=== PATIENT | male | born 1940 | race Caucasian/White ===

== ENCOUNTER 2018-07-23 21:12 | Inpatient (IN) | payer MEDICARE, MEDICAID ==
--- NOTE | 2018-07-23 21:28 | ED Physician Chart ---
ED Chief Complaint/HPI - Patient Information Date Seen:: 07/23/18 Time Seen:: 21:15 Chief Complaint:: combativeness History of Present Illness:: Patient has reportedly been exhibiting combative behavior and striking out at roommates and staff at his extended care facility. Historian:: Patient, EMS Review:: Transfer documents Reviewed ED Review of Systems - Review of Systems General/Constitutional: No chills Skin: No skin lesions Head: No headache Eyes: No loss of vision ENT: No earache Neck: No neck pain, No swelling Cardio Vascular: No chest pain, No palpitations Pulmonary: No SOB GI: No nausea, No vomiting, No diarrhea G/U: No dysuria Musculoskeletal: No bone or joint pain Psychiatric: Prior psych history Hematopoietic: No bruising Allergic/Immuno: No urticaria Neurological: No syncope ED Past Medical History - Past Medical History Past Medical History: HTN, CAD, Seizures, Dementia Family History: None Social History: Non Smoker, Care Facility, Other (patient alcohol consumption) Surgical History: None Medication: Reviewed Family Medical History - Family Member Mother History Unknown: Yes ED Physical Exam - Physical Examination General/Constitutional: Awake, Well-developed, well-nourished, Alert, No distress, GCS 15, Non-toxic appearing, Ambulatory Other Gen/Cons comments:: Alert and oriented to the correct date Head: Atraumatic Eyes: Lids, conjuctiva normal, PERRL, EOMI Skin: Nl inspection, No rash, No skin lesions, No ecchymosis, Well hydrated, No lymphadenopathy ENMT: External ears, nose nl, Nasal exam nl, Lips, teeth, gums nl Neck: Nontender, Full ROM w/o pain, No JVD, No nuchal rigidity, No bruit, No mass, No stridor Respiratory: Nl effort/Exclusion, Clear to Auscultation, No Wheeze/Rhonchi/Rales Cardio Vascular: RRR, No murmur, gallop, rubs, NL S1 S2 GI: No tenderness/rebounding/guarding, No organomegaly, No hernia, Normal BS's, Nondistended, No mass/bruits, No McBurney tenderness : No CVA tenderness Extremities: No tenderness or effusion, Full ROM, normal strength in all extremities, No edema, Normal digits & nails Neuro/Psych: Alert/oriented, DTR's symmetric, Normal sensory exam, Normal motor strength, Judgement/insight normal, Mood normal, Normal gait, No focal deficits Misc: Normal back, No paraspinal tenderness ED Labs/Radiology/EKG Results - Lab Results Results: Abnormal Lab Results 07/23/18 07/23/18 07/23/18 21:37 21:37 21:50 WBC 7.0 RBC 4.85 Hgb 13.4 Hct 41.4 MCV 85.3 MCH 27.6 MCHC Differential 32.4 RDW 12.4 Plt Count 271 MPV 8.3 Neutrophils % 49.9 Lymphocytes % 42.1 Monocytes % 5.1 Eosinophils % 2.0 Basophils % 0.9 Sodium 137 Potassium 3.7 Chloride 101 Carbon Dioxide 27.6 Anion Gap 12.1 BUN 15 Creatinine 0.8 Est GFR ( Amer) TNP Est GFR (Non-Af Amer) TNP BUN/Creatinine Ratio 18.8 Glucose 93 Calcium 9.6 Total Bilirubin 0.4 AST 19 ALT 16 Alkaline Phosphatase 66 Total Protein 6.6 Albumin 4.0 L Globulin 2.6 Albumin/Globulin Ratio 1.5 Triglycerides 71 Cholesterol 171 LDL Cholesterol Direct 122 HDL Cholesterol 48 Urine Source CLEAN C Urine Color OTHER Urine Clarity CLEAR Urine pH 6.5 Ur Specific [place] <= 1.005 Urine Protein NEGATIVE Urine Glucose (UA) NEGATIVE Urine Ketones NEGATIVE Urine Blood NEGATIVE Urine Nitrate NEGATIVE Urine Bilirubin NEGATIVE Urine Urobilinogen 0.2 Ur Leukocyte Esterase NEGATIVE - EKG Interpretations Rate & Rhythm: normal sinus rhythm with a rate of 60 [place]: normal Comments:: First-degree AV block ED Septic Shock - . Is Septic Shock (SBP<90, OR Lactate>4 mmol\L) present?: No ED Reassessment (Disposition) - Reassessment Reassessment Condition:: Unchanged - Diagnosis Diagnosis:: Aggressive behavior - Patient Disposition Admitted to:: [facility] Admitting Medical Physician:: Trudy Krishnamurthy Admitting Psych Physician:: Irvin Khan Condition at Disposition:: Stable, Unchanged
[2018-07-23 21:32] VITALS: BP 140/80
[2018-07-23 21:43] LABS: % BASOPHILS 0.9 % (0.0-2.0); % LYMPHOCYTES 42.1 % (20.0-50.0); % MONOCYTES 5.1 % (2.0-10.0); % NEUTROPHILS 49.9 % (40.0-80.0); HEMATOCRIT 41.4 % (41.0-60); HEMOGLOBIN 13.4 gm/dL (12-16); MEAN CELL VOLUME 85.3 fl (80-99); MEAN CORPUSCULAR HEMOGLOBIN 27.6 pg (27.0-31.0); MEAN CORPUSCULAR HGB CONC 32.4 pg (28.0-36.0); MEAN PLATELET VOLUME 8.3 fl; NEUTROPHILE ABSOLUTE 3.5 Th/cmm (1.8-8.0); PLATELET COUNT 271 Th/cmm (150-400); RED BLOOD COUNT 4.85 Mil/cmm (3.80-5.80); RED CELL DISTRIBUTION WIDTH 12.4 % (11.5-20.0)
[2018-07-23 21:44] LABS: BASOPHILE ABSOLUTE 0.1 Th/cumm (0-0.2); EOSINOPHILE ABSOLUTE 0.1 Th/cmm (0.1-0.4); LYMPHOCYTE ABSOLUTE 2.9 Th/cmm (1.5-3.0); MONOCYTE ABSOLUTE 0.4 Th/cmm (0.3-1.0)
[2018-07-23 22:00] LABS: ALB/GLOB RATIO 1.5 (1.0-1.8); ALKALINE PHOSPHATASE 66 U/L (34-104); ANION GAP 12.1 (7.0-16.0); BILIRUBIN,TOTAL 0.4 mg/dL (0.3-1.0); BUN - UREA NITROGEN 15 mg/dL (7-25); CALCIUM SERUM 9.6 mg/dL (8.6-10.3); CARBON DIOXIDE 27.6 mEq/L (21.0-31.0); CHLORIDE 101 mEq/L (98-107); CHOLESTEROL 171 mg/dL (<200); CREATININE - SERUM 0.8 mg/dL (0.7-1.3); GLUCOSE 93 mg/dL (70-105); HDL -HIGH DENSITY LIPOPROTEIN 48 mg/dL (23-92); POTASSIUM SERUM 3.7 mEq/L (3.5-5.1); SGOT 19 U/L (13-39); SGPT/ALT 16 U/L (7-52); SODIUM SERUM 137 mEq/L (136-145); TOTAL PROTEIN,SERUM 6.6 gm/dL (6.0-8.3); TRIGLYCERIDES 71 mg/dL (<150)
[2018-07-23 22:05] LABS: URINE SOURCE CLEAN C
[2018-07-23 22:09] LABS: URINE BILIRUBIN NEGATIVE (NEGATIVE); URINE BLOOD NEGATIVE (NEGATIVE); URINE GLUCOSE (UA) NEGATIVE (NEGATIVE); URINE KETONE NEGATIVE (NEGATIVE); URINE LEUKOCYTE ESTERASE NEGATIVE (NEGATIVE); URINE NITRATE NEGATIVE (NEGATIVE); URINE PH 6.5 (4.6 - 8.0); URINE PROTEIN NEGATIVE (NEGATIVE); URINE UROBILINOGEN 0.2 E.U./dL (0.2 - 1.0)
[2018-07-23 22:12] LABS: URINE CLARITY CLEAR (CLEAR); URINE COLOR OTHER; URINE MICROSCOPIC INDICATED? NO
[2018-07-24] MEDS ORDERED: Maalox 30 mL Cup PO PRN (00:25)
[2018-07-24] MEDS: Pantoprazole 40 mg EC Tab PO SCH (06:38)
[2018-07-24] MEDS: Multivitamin Tab PO SCH (09:30)
--- NOTE | 2018-07-24 13:21 | History & Physical ---
ADMIT DATE: 07/23/2018 IDENTIFYING INFORMATION: The patient is a 77-year-old male. CHIEF COMPLAINT: "I have pain in my legs." HISTORY OF PRESENT ILLNESS: The patient referred from [facility] because of combative behavior. The patient himself was a poor historian. He reports that he has dementia. He said that he was exercising and he has pain in his leg. He reports sleeps well, eats well. He was unable to tell me the present, could not tell me who was before him. He said this is first hospitalization; however, before that he told me he saw me before when he was hospitalized before. He is an unreliable historian. He was apparently able to tell the date to the doctor that saw him in Emergency Room, he said it is 07/28, unable to tell me more details about the date. PAST PSYCHIATRIC HISTORY: Dementia, agitation. MEDICATIONS: The patient has been on Aricept 10 mg daily as well as Neurontin 600 mg 3 times a day, Lamictal 100 mg twice a day and Remeron 7.5 mg at bedtime, and multivitamin daily, and Protonix. He is apparently on medication for neuropathy. ALLERGIES: The patient has no known drug allergies. PAST MEDICAL HISTORY: Unable to tell me if he has any medical condition, complaint of pain in his legs. He is demented, confused, and gastroesophageal reflux disease. He is on Protonix. FAMILY AND SOCIAL HISTORY: The patient reports single, never , no children twelfth grade education. He ____ used to play cards. He denies substance abuse; however, he is not a reliable historian. He lives at [facility]. Denies family psychiatry disorder. He is an unreliable historian. MENTAL STATUS EXAMINATION: The patient is appropriately dressed, not well groomed. He was alert. He was unable to tell me exact date. He says, this is 07/28, unable to tell me more details about the date, he said he believes he lived here. When asked where he lived before that he could not tell me. He did not know where he was living. He reported that he sleeps well. He eats well. He was combative, aggressive at the nursing facility he was at. He denies any visual hallucinations. He denies any intent to harm anybody. His long-term memory is good, age and date of . Recent memory is poor, cannot remember events at his admission and inside about his illness is poor, does not realize that he has a problem, what he has problem. Judgment is poor with his behavior. IMPRESSION: Bipolar disorder, dementia. MEDICAL DIAGNOSES: Deferred to the medical doctor. ASSETS: He is accepting treatment. Negative poor coping skills. INITIAL TREATMENT PLAN: The patient will be continued on medication and adjust medication as needed. We will do group therapy, milieu therapy. ESTIMATED LENGTH OF STAY: 3-7 days. DISCHARGE CRITERIA: Decreasing agitation, combativeness, after discharge outpatient treatment. JOB# [id number]
--- NOTE | 2018-07-24 14:28 | History & Physical ---
ADMIT DATE: 07/23/2018 HISTORY OF PRESENT ILLNESS: The patient is a 77-year-old male with long history of degenerative joint disease, mild dementia, peripheral neuropathy, admitted to [facility] under Dr. Khan's service for evaluation and treatment. The patient still has pain of the lower extremities. No fever. No chills. PAST MEDICAL HISTORY: Significant for peripheral neuropathy, degenerative joint disease, and mild dementia. PAST SURGICAL HISTORY: No recent surgery. ALLERGIES: None. MEDICATIONS: Follow admission reconciliation. SOCIAL HISTORY: No smoking, no alcohol, and no drugs. FAMILY HISTORY: Noncontributory. REVIEW OF SYSTEMS: RENAL SYSTEM: No history of chronic renal disorder. CARDIOVASCULAR SYSTEM: No coronary artery disease. ENDOCRINE SYSTEM: No diabetes or thyroid problem. GASTROINTESTINAL SYSTEM: No upper or lower gastrointestinal bleed. NEUROLOGICAL SYSTEM: ____. MUSCULOSKELETAL SYSTEM: Degenerative joint disease. PHYSICAL EXAMINATION: GENERAL: He is awake, alert. VITAL SIGNS: Temperature 97, heart rate 61, blood pressure is 131/72. HEENT: Normocephalic. Pupils are reactive to light and accommodation. Sclerae clear. NECK: Supple. Negative for lymphadenopathy, JVD, or bruit. CHEST: Entry of air bilateral normal. No rhonchi or wheezing. HEART: S1 and S2 normal. No gallop rhythm. ABDOMEN: Soft, bowel sounds positive. EXTREMITIES: No edema. NEUROLOGIC: He is awake, alert, mildly confused. His gait is unstable. LABORATORY DATA: White blood 7, hemoglobin 13.4, hematocrit 41.4, and platelet is 271. Sodium 137, potassium 3.7, BUN 15, and creatinine 0.8. ASSESSMENT: 1. Degenerative joint disease. 2. Peripheral neuropathy of lower extremities. 3. Dementia. 4. Psychosis. PLAN: The patient was admitted to the hospital under Dr. Khan's service. Medical problem addressed during this hospitalization is psychosis. Medical problems addressed at discharge are neuropathy, degenerative joint disease, and dementia. The patient is medically stable for activity. Thank you Dr. Khan for asking me to see your patient. The patient is a full code. JOB# [id number]
[2018-07-25] MEDS: Pantoprazole 40 mg EC Tab PO SCH (06:51)
[2018-07-25] MEDS: Multivitamin Tab PO SCH (09:04)
--- NOTE | 2018-07-25 10:19 | Internal Medicine Prog Note ---
Internal Medicine Subjective - Subjective Service Date: 07/25/18 Patient seen and examined:: with staff Patient is:: awake, verbal, in wheelchair, confused Per staff patient has:: no adverse event Internal Medicine Objective - Results Result Diagrams: 07/23/18 21:37 07/23/18 21:37 Recent Labs: Laboratory Last Values WBC 7.0 Th/cmm (4.8-10.8) 07/23/18 21:37 RBC 4.85 Mil/cmm (3.80-5.80) 07/23/18 21:37 Hgb 13.4 gm/dL (12-16) 07/23/18 21:37 Hct 41.4 % (41.0-60) 07/23/18 21:37 MCV 85.3 fl (80-99) 07/23/18 21:37 MCH 27.6 pg (27.0-31.0) 07/23/18 21:37 MCHC Differential 32.4 pg (28.0-36.0) 07/23/18 21:37 RDW 12.4 % (11.5-20.0) 07/23/18 21:37 Plt Count 271 Th/cmm (150-400) 07/23/18 21:37 MPV 8.3 fl 07/23/18 21:37 Neutrophils % 49.9 % (40.0-80.0) 07/23/18 21:37 Lymphocytes % 42.1 % (20.0-50.0) 07/23/18 21:37 Monocytes % 5.1 % (2.0-10.0) 07/23/18 21:37 Eosinophils % 2.0 % (0.0-5.0) 07/23/18 21:37 Basophils % 0.9 % (0.0-2.0) 07/23/18 21:37 Sodium 137 mEq/L (136-145) 07/23/18 21:37 Potassium 3.7 mEq/L (3.5-5.1) 07/23/18 21:37 Chloride 101 mEq/L (98-107) 07/23/18 21:37 Carbon Dioxide 27.6 mEq/L (21.0-31.0) 07/23/18 21:37 Anion Gap 12.1 (7.0-16.0) 07/23/18 21:37 BUN 15 mg/dL (7-25) 07/23/18 21:37 Creatinine 0.8 mg/dL (0.7-1.3) 07/23/18 21:37 Est GFR ( Amer) TNP 07/23/18 21:37 Est GFR (Non-Af Amer) TNP 07/23/18 21:37 BUN/Creatinine Ratio 18.8 07/23/18 21:37 Glucose 93 mg/dL (70-105) 07/23/18 21:37 Calcium 9.6 mg/dL (8.6-10.3) 07/23/18 21:37 Total Bilirubin 0.4 mg/dL (0.3-1.0) 07/23/18 21:37 AST 19 U/L (13-39) 07/23/18 21:37 ALT 16 U/L (7-52) 07/23/18 21:37 Alkaline Phosphatase 66 U/L (34-104) 07/23/18 21:37 Total Protein 6.6 gm/dL (6.0-8.3) 07/23/18 21:37 Albumin 4.0 gm/dL (4.2-5.5) L 07/23/18 21:37 Globulin 2.6 gm/dL 07/23/18 21:37 Albumin/Globulin Ratio 1.5 (1.0-1.8) 07/23/18 21:37 Triglycerides 71 mg/dL (<150) 07/23/18 21:37 Cholesterol 171 mg/dL (<200) 07/23/18 21:37 LDL Cholesterol Direct 122 mg/dL (75-193) 07/23/18 21:37 HDL Cholesterol 48 mg/dL (23-92) 07/23/18 21:37 TSH 3.46 uIU/ml (0.34-5.60) 07/23/18 21:37 Urine Source CLEAN C 07/23/18 21:50 Urine Color OTHER 07/23/18 21:50 Urine Clarity CLEAR (CLEAR) 07/23/18 21:50 Urine pH 6.5 (4.6 - 8.0) 07/23/18 21:50 Ur Specific [place] <= 1.005 (1.005-1.030) 07/23/18 21:50 Urine Protein NEGATIVE mg/dL (NEGATIVE) 07/23/18 21:50 Urine Glucose (UA) NEGATIVE mg/dL (NEGATIVE) 07/23/18 21:50 Urine Ketones NEGATIVE mg/dL (NEGATIVE) 07/23/18 21:50 Urine Blood NEGATIVE (NEGATIVE) 07/23/18 21:50 Urine Nitrate NEGATIVE (NEGATIVE) 07/23/18 21:50 Urine Bilirubin NEGATIVE (NEGATIVE) 07/23/18 21:50 Urine Urobilinogen 0.2 E.U./dL (0.2 - 1.0) 07/23/18 21:50 Ur Leukocyte Esterase NEGATIVE (NEGATIVE) 07/23/18 21:50 - Physical Exam Vitals and I&O: Vital Signs Temp 96.9 F 07/25/18 06:34 Pulse 50 07/25/18 06:34 Resp 19 07/25/18 06:34 BP 105/53 07/25/18 06:34 Pulse Ox 98 07/25/18 06:34 Intake & Output 07/24/18 07/25/18 07/25/18 18:59 06:59 18:59 Intake Total 700 240 Balance 700 240 Weight (lbs) 77.111 kg Intake: Oral 700 240 Other: # Voids 3 3 # Bowel Movements 1 1 Weight Source Bedscale Active Medications: Current Medications Al Hydrox/Mg Hydrox/Simethicone (Maalox) 30 ml PO Q6HR PRN PRN Reason: gi distress Stop: 09/22/18 00:24 Aspirin (Ecotrin) 81 mg PO DAILY [facility] Stop: 09/22/18 08:59 Last Admin: 07/25/18 09:04 Dose: 81 mg Docusate Sodium (Colace) 250 mg PO DAILY [facility] Stop: 09/22/18 08:59 Last Admin: 07/25/18 09:04 Dose: 250 mg Donepezil HCl (Aricept) 10 mg PO HS [facility] Stop: 09/22/18 20:59 Last Admin: 07/24/18 20:47 Dose: 10 mg Gabapentin (Neurontin) 600 mg PO TID [facility] Stop: 09/22/18 08:59 Last Admin: 07/25/18 09:04 Dose: 600 mg Lamotrigine (Lamictal) 100 mg PO BID [facility]; Protocol Stop: 09/22/18 08:59 Last Admin: 07/25/18 09:04 Dose: 100 mg Lorazepam (Ativan) 0.5 mg PO Q4HR PRN; Protocol PRN Reason: Anxiety Stop: 08/23/18 00:18 Mirtazapine (Remeron) 7.5 mg PO HS [facility]; Protocol Stop: 09/22/18 20:59 Last Admin: 07/24/18 20:47 Dose: 7.5 mg Multivitamins/Vitamin C (Theragran) 1 tab PO DAILY [facility] Stop: 09/22/18 08:59 Last Admin: 07/25/18 09:04 Dose: 1 tab Pantoprazole Sodium (Protonix) 40 mg PO QDAC [facility] Stop: 09/22/18 07:29 Last Admin: 07/25/18 06:51 Dose: 40 mg Zolpidem Tartrate (Ambien) 5 mg PO HS PRN PRN Reason: Insomnia Stop: 09/22/18 00:18 General: alert, demented HEENT: PERRLA, EOMI, anicteric sclerae, throat clear Neck: Supple, No JVD, No thyromegaly, +2 carotid pulse wo bruit, No LAD Lungs: CTAB Cardiovascular: RRR, Normal S1, Normal S2, without murmur Abdomen: soft, non-tender, non-distended Extremities: clear Neurological: no change Internal Medicine Assmt/Plan - Assessment Assessment: 1.DJD. 2.PERIPHERAL NEUROPATHY. 3.DEMENTIA. 4.PSYCHOSIS. - Plan Plan: CONTINUE ON CURRENT MEDICATION AND DIET.
--- NOTE | 2018-07-25 22:52 | Progress Notes ---
DATE: SUBJECTIVE: Chart reviewed and the patient interviewed. Also discussed the patient's condition with the staff and reviewed records and labs. The patient is still extremely agitated and in irritable mood. The patient also during my trial to interview him, was very confused and agitated and he kept walking to the exit door and tried to push the door and to exit door in a confused state. The patient also was not able to follow any of my directions or any of staff directions. The patient also is still irritable and easily agitated. It seems that his agitation slightly better than before. ASSESSMENT: The patient is still confused and psychotic. TREATMENT PLAN: Continue Lamictal and Remeron same dose as well as Aricept. Also, continue to monitor his agitation and his irritability. JOB# [id number]
[2018-07-26] MEDS: Pantoprazole 40 mg EC Tab PO SCH (06:40)
[2018-07-26] MEDS: Multivitamin Tab PO SCH (09:02)
--- NOTE | 2018-07-26 19:42 | Internal Medicine Prog Note ---
Internal Medicine Subjective - Subjective Service Date: 07/26/18 Patient seen and examined:: without staff Patient is:: awake, verbal, in wheelchair, confused Per staff patient has:: no adverse event Internal Medicine Objective - Results Result Diagrams: 07/23/18 21:37 07/23/18 21:37 Recent Labs: Laboratory Last Values WBC 7.0 Th/cmm (4.8-10.8) 07/23/18 21:37 RBC 4.85 Mil/cmm (3.80-5.80) 07/23/18 21:37 Hgb 13.4 gm/dL (12-16) 07/23/18 21:37 Hct 41.4 % (41.0-60) 07/23/18 21:37 MCV 85.3 fl (80-99) 07/23/18 21:37 MCH 27.6 pg (27.0-31.0) 07/23/18 21:37 MCHC Differential 32.4 pg (28.0-36.0) 07/23/18 21:37 RDW 12.4 % (11.5-20.0) 07/23/18 21:37 Plt Count 271 Th/cmm (150-400) 07/23/18 21:37 MPV 8.3 fl 07/23/18 21:37 Neutrophils % 49.9 % (40.0-80.0) 07/23/18 21:37 Lymphocytes % 42.1 % (20.0-50.0) 07/23/18 21:37 Monocytes % 5.1 % (2.0-10.0) 07/23/18 21:37 Eosinophils % 2.0 % (0.0-5.0) 07/23/18 21:37 Basophils % 0.9 % (0.0-2.0) 07/23/18 21:37 Sodium 137 mEq/L (136-145) 07/23/18 21:37 Potassium 3.7 mEq/L (3.5-5.1) 07/23/18 21:37 Chloride 101 mEq/L (98-107) 07/23/18 21:37 Carbon Dioxide 27.6 mEq/L (21.0-31.0) 07/23/18 21:37 Anion Gap 12.1 (7.0-16.0) 07/23/18 21:37 BUN 15 mg/dL (7-25) 07/23/18 21:37 Creatinine 0.8 mg/dL (0.7-1.3) 07/23/18 21:37 Est GFR ( Amer) TNP 07/23/18 21:37 Est GFR (Non-Af Amer) TNP 07/23/18 21:37 BUN/Creatinine Ratio 18.8 07/23/18 21:37 Glucose 93 mg/dL (70-105) 07/23/18 21:37 Calcium 9.6 mg/dL (8.6-10.3) 07/23/18 21:37 Total Bilirubin 0.4 mg/dL (0.3-1.0) 07/23/18 21:37 AST 19 U/L (13-39) 07/23/18 21:37 ALT 16 U/L (7-52) 07/23/18 21:37 Alkaline Phosphatase 66 U/L (34-104) 07/23/18 21:37 Total Protein 6.6 gm/dL (6.0-8.3) 07/23/18 21:37 Albumin 4.0 gm/dL (4.2-5.5) L 07/23/18 21:37 Globulin 2.6 gm/dL 07/23/18 21:37 Albumin/Globulin Ratio 1.5 (1.0-1.8) 07/23/18 21:37 Triglycerides 71 mg/dL (<150) 07/23/18 21:37 Cholesterol 171 mg/dL (<200) 07/23/18 21:37 LDL Cholesterol Direct 122 mg/dL (75-193) 07/23/18 21:37 HDL Cholesterol 48 mg/dL (23-92) 07/23/18 21:37 TSH 3.46 uIU/ml (0.34-5.60) 07/23/18 21:37 Urine Source CLEAN C 07/23/18 21:50 Urine Color OTHER 07/23/18 21:50 Urine Clarity CLEAR (CLEAR) 07/23/18 21:50 Urine pH 6.5 (4.6 - 8.0) 07/23/18 21:50 Ur Specific [place] <= 1.005 (1.005-1.030) 07/23/18 21:50 Urine Protein NEGATIVE mg/dL (NEGATIVE) 07/23/18 21:50 Urine Glucose (UA) NEGATIVE mg/dL (NEGATIVE) 07/23/18 21:50 Urine Ketones NEGATIVE mg/dL (NEGATIVE) 07/23/18 21:50 Urine Blood NEGATIVE (NEGATIVE) 07/23/18 21:50 Urine Nitrate NEGATIVE (NEGATIVE) 07/23/18 21:50 Urine Bilirubin NEGATIVE (NEGATIVE) 07/23/18 21:50 Urine Urobilinogen 0.2 E.U./dL (0.2 - 1.0) 07/23/18 21:50 Ur Leukocyte Esterase NEGATIVE (NEGATIVE) 07/23/18 21:50 RPR NONREACTIVE (NONREACTIVE) 07/23/18 21:37 - Physical Exam Vitals and I&O: Vital Signs Temp 97.4 F 07/26/18 14:00 Pulse 60 07/26/18 14:00 Resp 20 07/26/18 14:00 BP 118/55 07/26/18 14:00 Pulse Ox 96 07/26/18 14:00 Intake & Output 07/26/18 07/26/18 07/27/18 06:59 18:59 06:59 Intake Total 120 1200 Balance 120 1200 Intake: Oral 120 1200 Other: # Voids 3 4 # Bowel Movements 1 Active Medications: Current Medications Al Hydrox/Mg Hydrox/Simethicone (Maalox) 30 ml PO Q6HR PRN PRN Reason: gi distress Stop: 09/22/18 00:24 Aspirin (Ecotrin) 81 mg PO DAILY [facility] Stop: 09/22/18 08:59 Last Admin: 07/26/18 09:02 Dose: 81 mg Docusate Sodium (Colace) 250 mg PO DAILY [facility] Stop: 09/22/18 08:59 Last Admin: 07/26/18 09:02 Dose: 250 mg Donepezil HCl (Aricept) 10 mg PO HS [facility] Stop: 09/22/18 20:59 Last Admin: 07/25/18 20:22 Dose: 10 mg Gabapentin (Neurontin) 600 mg PO TID [facility] Stop: 09/22/18 08:59 Last Admin: 07/26/18 13:02 Dose: 600 mg Lamotrigine (Lamictal) 100 mg PO BID [facility]; Protocol Stop: 09/22/18 08:59 Last Admin: 07/26/18 16:56 Dose: 100 mg Lorazepam (Ativan) 0.5 mg PO Q4HR PRN; Protocol PRN Reason: Anxiety Stop: 08/23/18 00:18 Last Admin: 07/26/18 14:51 Dose: 0.5 mg Mirtazapine (Remeron) 7.5 mg PO HS [facility]; Protocol Stop: 09/22/18 20:59 Last Admin: 07/25/18 20:21 Dose: 7.5 mg Multivitamins/Vitamin C (Theragran) 1 tab PO DAILY [facility] Stop: 09/22/18 08:59 Last Admin: 07/26/18 09:02 Dose: 1 tab Pantoprazole Sodium (Protonix) 40 mg PO QDAC [facility] Stop: 09/22/18 07:29 Last Admin: 07/26/18 06:40 Dose: 40 mg Zolpidem Tartrate (Ambien) 5 mg PO HS PRN PRN Reason: Insomnia Stop: 09/22/18 00:18 Last Admin: 07/25/18 20:22 Dose: 5 mg General: alert, demented HEENT: PERRLA, EOMI, anicteric sclerae, throat clear Neck: Supple, No JVD, No thyromegaly, +2 carotid pulse wo bruit, No LAD Lungs: CTAB Cardiovascular: RRR, Normal S1, Normal S2, without murmur Abdomen: soft, non-tender, non-distended Extremities: clear Neurological: no change Internal Medicine Assmt/Plan - Assessment Assessment: 1.DJD. 2.PERIPHERAL NEUROPATHY. 3.DEMENTIA. 4.PSYCHOSIS. - Plan Plan: CONTINUE ON CURRENT MEDICATION AND DIET. Nutritional Asmnt/Malnutr-PDOC - Dietary Evaluation Malnutrition Findings (Please click <Entered> for more info): Nutritional Asmnt/Malnutrition Start: 07/25/18 14: 51 Text: Status: Complete Freq: Protocol: Document 07/25/18 14:52 JUANITA (Rec: 07/25/18 14:57 [email or web address]) Nutritional Asmnt/Malnutrition Patient General Information Nutritional Screening Moderate Risk Diagnosis psychosis Pertinent Medical Hx/Surgical Hx DJD, dementia, peripheral neuropathy Subjective Information Pt seen eating in dining room, alert. Food preference provided to RD. Per EMR, PO intake 50-75% Current Diet Order/ Nutrition Support MARIA ISABEL Pertinent Medications colace, remeron, theragran, protonix Pertinent Labs 07/23 Alb 4.0 Nutritional Hx/Data Height 1.78 m Height (Calculated Centimeters) 177.8 Current Weight (lbs) 77.111 kg Weight (Calculated Kilograms) 77.1 Weight (Calculated Grams) 49732.7 [place] Body Weight 166 Body Mass Index (BMI) 24.3 Weight Status Approriate GI Symptoms GI Symptoms None Last BM 07/25 Difficult in: None Skin Integrity/Comment: intact Current %PO Fair (50-74%) Estimated Nutritional Goals BEE in Kcals: Using Current wt Calories/Kcals/Kg 25-30 Kcals Calculated 2630-9889 Protein: Using Current wt Protein g/k Protein Calculated 77 Fluid: ml 1925-2310ml (1ml/kcal) Nutritional Problem No current Nutrition Prob Problem N/A Malnutrition Alert Is there a minimum of two criteria No selected? Query Text:Check all the applicable criteria. A minimum of two criteria are recommended for diagnosis of either severe or non-severe malnutrition. Malnutrition Related to Morbid Obesity Malnutrition related to morbid obesity No Intervention/Recommendation Comments 1. Continue with MARIA ISABEL diet as ordered. Food preference updated. 2. Monitor PO intake, wt, labs and skin integrity 3. F/U as low risk in 7 days Expected Outcomes/Goals Expected Outcomes/Goals 1. PO intake to meet at least 75% of nutritional needs. 2. Wt stability, skin to remain intact, labs to approach WNL.
[2018-07-27] MEDS: Pantoprazole 40 mg EC Tab PO SCH (06:45)
[2018-07-27] MEDS: Multivitamin Tab PO SCH (08:32)
--- NOTE | 2018-07-27 17:21 | Internal Medicine Prog Note ---
Internal Medicine Subjective - Subjective Service Date: 07/27/18 Patient seen and examined:: without staff Patient is:: awake, verbal, in wheelchair, confused Per staff patient has:: no adverse event Internal Medicine Objective - Results Result Diagrams: 07/23/18 21:37 07/23/18 21:37 Recent Labs: Laboratory Last Values WBC 7.0 Th/cmm (4.8-10.8) 07/23/18 21:37 RBC 4.85 Mil/cmm (3.80-5.80) 07/23/18 21:37 Hgb 13.4 gm/dL (12-16) 07/23/18 21:37 Hct 41.4 % (41.0-60) 07/23/18 21:37 MCV 85.3 fl (80-99) 07/23/18 21:37 MCH 27.6 pg (27.0-31.0) 07/23/18 21:37 MCHC Differential 32.4 pg (28.0-36.0) 07/23/18 21:37 RDW 12.4 % (11.5-20.0) 07/23/18 21:37 Plt Count 271 Th/cmm (150-400) 07/23/18 21:37 MPV 8.3 fl 07/23/18 21:37 Neutrophils % 49.9 % (40.0-80.0) 07/23/18 21:37 Lymphocytes % 42.1 % (20.0-50.0) 07/23/18 21:37 Monocytes % 5.1 % (2.0-10.0) 07/23/18 21:37 Eosinophils % 2.0 % (0.0-5.0) 07/23/18 21:37 Basophils % 0.9 % (0.0-2.0) 07/23/18 21:37 Sodium 137 mEq/L (136-145) 07/23/18 21:37 Potassium 3.7 mEq/L (3.5-5.1) 07/23/18 21:37 Chloride 101 mEq/L (98-107) 07/23/18 21:37 Carbon Dioxide 27.6 mEq/L (21.0-31.0) 07/23/18 21:37 Anion Gap 12.1 (7.0-16.0) 07/23/18 21:37 BUN 15 mg/dL (7-25) 07/23/18 21:37 Creatinine 0.8 mg/dL (0.7-1.3) 07/23/18 21:37 Est GFR ( Amer) TNP 07/23/18 21:37 Est GFR (Non-Af Amer) TNP 07/23/18 21:37 BUN/Creatinine Ratio 18.8 07/23/18 21:37 Glucose 93 mg/dL (70-105) 07/23/18 21:37 Calcium 9.6 mg/dL (8.6-10.3) 07/23/18 21:37 Total Bilirubin 0.4 mg/dL (0.3-1.0) 07/23/18 21:37 AST 19 U/L (13-39) 07/23/18 21:37 ALT 16 U/L (7-52) 07/23/18 21:37 Alkaline Phosphatase 66 U/L (34-104) 07/23/18 21:37 Total Protein 6.6 gm/dL (6.0-8.3) 07/23/18 21:37 Albumin 4.0 gm/dL (4.2-5.5) L 07/23/18 21:37 Globulin 2.6 gm/dL 07/23/18 21:37 Albumin/Globulin Ratio 1.5 (1.0-1.8) 07/23/18 21:37 Triglycerides 71 mg/dL (<150) 07/23/18 21:37 Cholesterol 171 mg/dL (<200) 07/23/18 21:37 LDL Cholesterol Direct 122 mg/dL (75-193) 07/23/18 21:37 HDL Cholesterol 48 mg/dL (23-92) 07/23/18 21:37 TSH 3.46 uIU/ml (0.34-5.60) 07/23/18 21:37 Urine Source CLEAN C 07/23/18 21:50 Urine Color OTHER 07/23/18 21:50 Urine Clarity CLEAR (CLEAR) 07/23/18 21:50 Urine pH 6.5 (4.6 - 8.0) 07/23/18 21:50 Ur Specific [place] <= 1.005 (1.005-1.030) 07/23/18 21:50 Urine Protein NEGATIVE mg/dL (NEGATIVE) 07/23/18 21:50 Urine Glucose (UA) NEGATIVE mg/dL (NEGATIVE) 07/23/18 21:50 Urine Ketones NEGATIVE mg/dL (NEGATIVE) 07/23/18 21:50 Urine Blood NEGATIVE (NEGATIVE) 07/23/18 21:50 Urine Nitrate NEGATIVE (NEGATIVE) 07/23/18 21:50 Urine Bilirubin NEGATIVE (NEGATIVE) 07/23/18 21:50 Urine Urobilinogen 0.2 E.U./dL (0.2 - 1.0) 07/23/18 21:50 Ur Leukocyte Esterase NEGATIVE (NEGATIVE) 07/23/18 21:50 RPR NONREACTIVE (NONREACTIVE) 07/23/18 21:37 - Physical Exam Vitals and I&O: Vital Signs Temp 98.2 F 07/27/18 14:00 Pulse 76 07/27/18 14:00 Resp 18 07/27/18 14:00 BP 102/60 07/27/18 14:00 Pulse Ox 97 07/27/18 14:00 Intake & Output 07/26/18 07/27/18 07/27/18 18:59 06:59 18:59 Intake Total 1200 120 Balance 1200 120 Intake: Oral 1200 120 Other: # Voids 4 3 # Bowel Movements 1 Active Medications: Current Medications Al Hydrox/Mg Hydrox/Simethicone (Maalox) 30 ml PO Q6HR PRN PRN Reason: gi distress Stop: 09/22/18 00:24 Aspirin (Ecotrin) 81 mg PO DAILY [facility] Stop: 09/22/18 08:59 Last Admin: 07/27/18 08:32 Dose: 81 mg Docusate Sodium (Colace) 250 mg PO DAILY [facility] Stop: 09/22/18 08:59 Last Admin: 07/27/18 08:32 Dose: 250 mg Donepezil HCl (Aricept) 10 mg PO HS [facility] Stop: 09/22/18 20:59 Last Admin: 07/26/18 21:23 Dose: 10 mg Gabapentin (Neurontin) 600 mg PO TID [facility] Stop: 09/22/18 08:59 Last Admin: 07/27/18 14:01 Dose: 600 mg Lamotrigine (Lamictal) 100 mg PO BID [facility]; Protocol Stop: 09/22/18 08:59 Last Admin: 07/27/18 17:09 Dose: 100 mg Lorazepam (Ativan) 0.5 mg PO Q4HR PRN; Protocol PRN Reason: Anxiety Stop: 08/23/18 00:18 Last Admin: 07/26/18 14:51 Dose: 0.5 mg Mirtazapine (Remeron) 7.5 mg PO HS [facility]; Protocol Stop: 09/22/18 20:59 Last Admin: 07/26/18 21:23 Dose: 7.5 mg Multivitamins/Vitamin C (Theragran) 1 tab PO DAILY [facility] Stop: 09/22/18 08:59 Last Admin: 07/27/18 08:32 Dose: 1 tab Pantoprazole Sodium (Protonix) 40 mg PO QDAC [facility] Stop: 09/22/18 07:29 Last Admin: 07/27/18 06:45 Dose: 40 mg Zolpidem Tartrate (Ambien) 5 mg PO HS PRN PRN Reason: Insomnia Stop: 09/22/18 00:18 Last Admin: 07/25/18 20:22 Dose: 5 mg General: alert, demented HEENT: PERRLA, EOMI, anicteric sclerae, throat clear Neck: Supple, No JVD, No thyromegaly, +2 carotid pulse wo bruit, No LAD Lungs: CTAB Cardiovascular: RRR, Normal S1, Normal S2, without murmur Abdomen: soft, non-tender, non-distended Extremities: clear Neurological: no change Internal Medicine Assmt/Plan - Assessment Assessment: 1.DJD. 2.PERIPHERAL NEUROPATHY. 3.DEMENTIA. 4.PSYCHOSIS. - Plan Plan: CONTINUE ON CURRENT MEDICATION AND DIET. Nutritional Asmnt/Malnutr-PDOC - Dietary Evaluation Malnutrition Findings (Please click <Entered> for more info): Nutritional Asmnt/Malnutrition Start: 07/25/18 14: 51 Text: Status: Complete Freq: Protocol: Document 07/25/18 14:52 JUANITA (Rec: 07/25/18 14:57 [email or web address]) Nutritional Asmnt/Malnutrition Patient General Information Nutritional Screening Moderate Risk Diagnosis psychosis Pertinent Medical Hx/Surgical Hx DJD, dementia, peripheral neuropathy Subjective Information Pt seen eating in dining room, alert. Food preference provided to RD. Per EMR, PO intake 50-75% Current Diet Order/ Nutrition Support MARIA ISABEL Pertinent Medications colace, remeron, theragran, protonix Pertinent Labs 07/23 Alb 4.0 Nutritional Hx/Data Height 1.78 m Height (Calculated Centimeters) 177.8 Current Weight (lbs) 77.111 kg Weight (Calculated Kilograms) 77.1 Weight (Calculated Grams) 03175.7 [place] Body Weight 166 Body Mass Index (BMI) 24.3 Weight Status Approriate GI Symptoms GI Symptoms None Last BM 07/25 Difficult in: None Skin Integrity/Comment: intact Current %PO Fair (50-74%) Estimated Nutritional Goals BEE in Kcals: Using Current wt Calories/Kcals/Kg 25-30 Kcals Calculated 4234-3561 Protein: Using Current wt Protein g/k Protein Calculated 77 Fluid: ml 1925-2310ml (1ml/kcal) Nutritional Problem No current Nutrition Prob Problem N/A Malnutrition Alert Is there a minimum of two criteria No selected? Query Text:Check all the applicable criteria. A minimum of two criteria are recommended for diagnosis of either severe or non-severe malnutrition. Malnutrition Related to Morbid Obesity Malnutrition related to morbid obesity No Intervention/Recommendation Comments 1. Continue with MARIA ISABEL diet as ordered. Food preference updated. 2. Monitor PO intake, wt, labs and skin integrity 3. F/U as low risk in 7 days Expected Outcomes/Goals Expected Outcomes/Goals 1. PO intake to meet at least 75% of nutritional needs. 2. Wt stability, skin to remain intact, labs to approach WNL.
--- NOTE | 2018-07-27 22:11 | Progress Notes ---
DATE: SUBJECTIVE: Chart reviewed and the patient interviewed. Also discussed the patient's condition with the staff and reviewed records and labs. The patient continued to be confused and restless. The patient also is still anxious and still needs redirections. The patient added "little rough." The patient is complaining that "my pants are wet." Personal hygiene is still poor and patient is still confused. Also still had periods of irritability and agitation. Otherwise, the patient is compliant with taking his medications with no side effects of medications. ASSESSMENT: The patient is still confused and psychotic. TREATMENT PLAN: Continue to monitor his behavior and his condition closely. Also, continue adjusting his medications and work on behavioral modification. JOB# [id number]
[2018-07-28] MEDS: Pantoprazole 40 mg EC Tab PO SCH (06:39)
[2018-07-28] MEDS: Multivitamin Tab PO SCH (09:13)
--- NOTE | 2018-07-28 15:37 | General Progress Note ---
Subjective - Review of Systems Service Date: 07/28/18 Subjective: resting comfortably no distress Objective - Results Result Diagrams: 07/23/18 21:37 07/23/18 21:37 Recent Labs: Laboratory Last Values WBC 7.0 Th/cmm (4.8-10.8) 07/23/18 21:37 RBC 4.85 Mil/cmm (3.80-5.80) 07/23/18 21:37 Hgb 13.4 gm/dL (12-16) 07/23/18 21:37 Hct 41.4 % (41.0-60) 07/23/18 21:37 MCV 85.3 fl (80-99) 07/23/18 21:37 MCH 27.6 pg (27.0-31.0) 07/23/18 21:37 MCHC Differential 32.4 pg (28.0-36.0) 07/23/18 21:37 RDW 12.4 % (11.5-20.0) 07/23/18 21:37 Plt Count 271 Th/cmm (150-400) 07/23/18 21:37 MPV 8.3 fl 07/23/18 21:37 Neutrophils % 49.9 % (40.0-80.0) 07/23/18 21:37 Lymphocytes % 42.1 % (20.0-50.0) 07/23/18 21:37 Monocytes % 5.1 % (2.0-10.0) 07/23/18 21:37 Eosinophils % 2.0 % (0.0-5.0) 07/23/18 21:37 Basophils % 0.9 % (0.0-2.0) 07/23/18 21:37 Sodium 137 mEq/L (136-145) 07/23/18 21:37 Potassium 3.7 mEq/L (3.5-5.1) 07/23/18 21:37 Chloride 101 mEq/L (98-107) 07/23/18 21:37 Carbon Dioxide 27.6 mEq/L (21.0-31.0) 07/23/18 21:37 Anion Gap 12.1 (7.0-16.0) 07/23/18 21:37 BUN 15 mg/dL (7-25) 07/23/18 21:37 Creatinine 0.8 mg/dL (0.7-1.3) 07/23/18 21:37 Est GFR ( Amer) TNP 07/23/18 21:37 Est GFR (Non-Af Amer) TNP 07/23/18 21:37 BUN/Creatinine Ratio 18.8 07/23/18 21:37 Glucose 93 mg/dL (70-105) 07/23/18 21:37 Calcium 9.6 mg/dL (8.6-10.3) 07/23/18 21:37 Total Bilirubin 0.4 mg/dL (0.3-1.0) 07/23/18 21:37 AST 19 U/L (13-39) 07/23/18 21:37 ALT 16 U/L (7-52) 07/23/18 21:37 Alkaline Phosphatase 66 U/L (34-104) 07/23/18 21:37 Total Protein 6.6 gm/dL (6.0-8.3) 07/23/18 21:37 Albumin 4.0 gm/dL (4.2-5.5) L 07/23/18 21:37 Globulin 2.6 gm/dL 07/23/18 21:37 Albumin/Globulin Ratio 1.5 (1.0-1.8) 07/23/18 21:37 Triglycerides 71 mg/dL (<150) 07/23/18 21:37 Cholesterol 171 mg/dL (<200) 07/23/18 21:37 LDL Cholesterol Direct 122 mg/dL (75-193) 07/23/18 21:37 HDL Cholesterol 48 mg/dL (23-92) 07/23/18 21:37 TSH 3.46 uIU/ml (0.34-5.60) 07/23/18 21:37 Urine Source CLEAN C 07/23/18 21:50 Urine Color OTHER 07/23/18 21:50 Urine Clarity CLEAR (CLEAR) 07/23/18 21:50 Urine pH 6.5 (4.6 - 8.0) 07/23/18 21:50 Ur Specific [place] <= 1.005 (1.005-1.030) 07/23/18 21:50 Urine Protein NEGATIVE mg/dL (NEGATIVE) 07/23/18 21:50 Urine Glucose (UA) NEGATIVE mg/dL (NEGATIVE) 07/23/18 21:50 Urine Ketones NEGATIVE mg/dL (NEGATIVE) 07/23/18 21:50 Urine Blood NEGATIVE (NEGATIVE) 07/23/18 21:50 Urine Nitrate NEGATIVE (NEGATIVE) 07/23/18 21:50 Urine Bilirubin NEGATIVE (NEGATIVE) 07/23/18 21:50 Urine Urobilinogen 0.2 E.U./dL (0.2 - 1.0) 07/23/18 21:50 Ur Leukocyte Esterase NEGATIVE (NEGATIVE) 07/23/18 21:50 RPR NONREACTIVE (NONREACTIVE) 07/23/18 21:37 - Physical Exam Vitals and I&O: Vital Signs Temp 97.6 F 07/28/18 14:53 Pulse 77 07/28/18 14:53 Resp 20 07/28/18 14:53 BP 115/66 07/28/18 14:53 Pulse Ox 98 07/28/18 14:53 Intake & Output 07/27/18 07/28/18 07/28/18 18:59 06:59 18:59 Intake Total 900 240 Balance 900 240 Weight (lbs) 77.111 kg Intake: Oral 900 240 Other: # Voids 3 3 # Bowel Movements 1 0 Weight Source Bedscale Active Medications: Current Medications Al Hydrox/Mg Hydrox/Simethicone (Maalox) 30 ml PO Q6HR PRN PRN Reason: gi distress Stop: 09/22/18 00:24 Aspirin (Ecotrin) 81 mg PO DAILY [facility] Stop: 09/22/18 08:59 Last Admin: 07/28/18 09:14 Dose: 81 mg Docusate Sodium (Colace) 250 mg PO DAILY [facility] Stop: 09/22/18 08:59 Last Admin: 07/28/18 09:13 Dose: 250 mg Donepezil HCl (Aricept) 10 mg PO HS [facility] Stop: 09/22/18 20:59 Last Admin: 07/27/18 20:59 Dose: 10 mg Gabapentin (Neurontin) 600 mg PO TID [facility] Stop: 09/22/18 08:59 Last Admin: 07/28/18 13:31 Dose: 600 mg Lamotrigine (Lamictal) 100 mg PO BID [facility]; Protocol Stop: 09/22/18 08:59 Last Admin: 07/28/18 09:13 Dose: 100 mg Lorazepam (Ativan) 0.5 mg PO Q4HR PRN; Protocol PRN Reason: Anxiety Stop: 08/23/18 00:18 Last Admin: 07/26/18 14:51 Dose: 0.5 mg Mirtazapine (Remeron) 7.5 mg PO HS [facility]; Protocol Stop: 09/22/18 20:59 Last Admin: 07/27/18 20:59 Dose: 7.5 mg Multivitamins/Vitamin C (Theragran) 1 tab PO DAILY [facility] Stop: 09/22/18 08:59 Last Admin: 07/28/18 09:13 Dose: 1 tab Pantoprazole Sodium (Protonix) 40 mg PO QDAC [facility] Stop: 09/22/18 07:29 Last Admin: 07/28/18 06:39 Dose: 40 mg Zolpidem Tartrate (Ambien) 5 mg PO HS PRN PRN Reason: Insomnia Stop: 09/22/18 00:18 Last Admin: 07/25/18 20:22 Dose: 5 mg General: No acute distress HEENT: Atraumatic Neck: Supple, JVD Cardiovascular: Regular rate, Normal S1, Normal S2 Lungs: Clear to auscultation Abdomen: Bowel sounds, Soft Assessment/Plan - Assessment Assessment: 1.PERIPHERAL NEUROPATHY. 2.DJD. 3.DEMENTIA. 4.PSYCHOSIS. - Plan Plan: CONTINUE CURRENT TREATMENT Nutritional Asmnt/Malnutr-PDOC - Dietary Evaluation Malnutrition Findings (Please click <Entered> for more info): Nutritional Asmnt/Malnutrition Start: 07/25/18 14: 51 Text: Status: Complete Freq: Protocol: Document 07/25/18 14:52 LCALBERTOG (Rec: 07/25/18 14:57 [email or web address]) Nutritional Asmnt/Malnutrition Patient General Information Nutritional Screening Moderate Risk Diagnosis psychosis Pertinent Medical Hx/Surgical Hx DJD, dementia, peripheral neuropathy Subjective Information Pt seen eating in dining room, alert. Food preference provided to RD. Per EMR, PO intake 50-75% Current Diet Order/ Nutrition Support MARIA ISABEL Pertinent Medications colace, remeron, theragran, protonix Pertinent Labs 07/23 Alb 4.0 Nutritional Hx/Data Height 1.78 m Height (Calculated Centimeters) 177.8 Current Weight (lbs) 77.111 kg Weight (Calculated Kilograms) 77.1 Weight (Calculated Grams) 28366.7 [place] Body Weight 166 Body Mass Index (BMI) 24.3 Weight Status Approriate GI Symptoms GI Symptoms None Last BM 07/25 Difficult in: None Skin Integrity/Comment: intact Current %PO Fair (50-74%) Estimated Nutritional Goals BEE in Kcals: Using Current wt Calories/Kcals/Kg 25-30 Kcals Calculated 7214-9497 Protein: Using Current wt Protein g/k Protein Calculated 77 Fluid: ml 1925-2310ml (1ml/kcal) Nutritional Problem No current Nutrition Prob Problem N/A Malnutrition Alert Is there a minimum of two criteria No selected? Query Text:Check all the applicable criteria. A minimum of two criteria are recommended for diagnosis of either severe or non-severe malnutrition. Malnutrition Related to Morbid Obesity Malnutrition related to morbid obesity No Intervention/Recommendation Comments 1. Continue with MARIA ISABEL diet as ordered. Food preference updated. 2. Monitor PO intake, wt, labs and skin integrity 3. F/U as low risk in 7 days Expected Outcomes/Goals Expected Outcomes/Goals 1. PO intake to meet at least 75% of nutritional needs. 2. Wt stability, skin to remain intact, labs to approach WNL.
--- NOTE | 2018-07-29 03:38 | Progress Notes ---
DATE: 07/27/2018 Chart reviewed and the patient interviewed. Also, discussed the patient's condition with the staff and reviewed the records and labs. The patient is still in an irritable and angry mood. The patient also is still confused and pacing up and down and easily agitated. The patient also is trying to push doors and hitting corona and needs lots of redirections. Otherwise, the patient is compliant with taking his medications with no side effects of medications. ASSESSMENT: The patient is still confused and still needs redirections. TREATMENT PLAN: We will continue to monitor behavior and condition closely. Also, continue working on ineffective coping and on adjusting psychotropic medications and behavioral modification. JOB# [id number]
--- NOTE | 2018-07-29 05:25 | Progress Notes ---
DATE: 07/28/2018 PSYCHIATRIC FOLLOWUP NOTE The patient was seen and evaluated. The patient's chart reviewed. COVERING FOR: Dr. Khan. HISTORY OF PRESENT ILLNESS: He is a 77-year-old male who was brought in here from [facility] for combative and aggressive behavior. Today on [id number] evaluation, the patient continues to be preoccupied. He has been exercising and therefore leg pain. He is unable to localize the pain itself, derails in conversation. He reports that he has been living in this facility for 10 years. MENTAL STATUS EXAMINATION: Anxious, irritable. CURRENT MEDICATION REGIMEN: The patient currently is on Aricept 10 mg a day, gabapentin 600 mg p.o. t.i.d., Lamictal 100 mg p.o. b.i.d., mirtazapine 7.5 mg p.o. at bedtime. ASSESSMENT AND PLAN: The patient with a history of dementia with behavioral disturbances and also history of depression with psychotic behavior. We will continue with the current medication regimen to continue to target the patient's residual disorganized thought process. [facility]# [id number]
[2018-07-29] MEDS: Pantoprazole 40 mg EC Tab PO SCH (06:56)
[2018-07-29] MEDS: Multivitamin Tab PO SCH (09:23)
--- NOTE | 2018-07-29 19:49 | General Progress Note ---
Subjective - Review of Systems Service Date: 07/29/18 Subjective: resting comfortably no distress Objective - Results Result Diagrams: 07/23/18 21:37 07/23/18 21:37 Recent Labs: Laboratory Last Values WBC 7.0 Th/cmm (4.8-10.8) 07/23/18 21:37 RBC 4.85 Mil/cmm (3.80-5.80) 07/23/18 21:37 Hgb 13.4 gm/dL (12-16) 07/23/18 21:37 Hct 41.4 % (41.0-60) 07/23/18 21:37 MCV 85.3 fl (80-99) 07/23/18 21:37 MCH 27.6 pg (27.0-31.0) 07/23/18 21:37 MCHC Differential 32.4 pg (28.0-36.0) 07/23/18 21:37 RDW 12.4 % (11.5-20.0) 07/23/18 21:37 Plt Count 271 Th/cmm (150-400) 07/23/18 21:37 MPV 8.3 fl 07/23/18 21:37 Neutrophils % 49.9 % (40.0-80.0) 07/23/18 21:37 Lymphocytes % 42.1 % (20.0-50.0) 07/23/18 21:37 Monocytes % 5.1 % (2.0-10.0) 07/23/18 21:37 Eosinophils % 2.0 % (0.0-5.0) 07/23/18 21:37 Basophils % 0.9 % (0.0-2.0) 07/23/18 21:37 Sodium 137 mEq/L (136-145) 07/23/18 21:37 Potassium 3.7 mEq/L (3.5-5.1) 07/23/18 21:37 Chloride 101 mEq/L (98-107) 07/23/18 21:37 Carbon Dioxide 27.6 mEq/L (21.0-31.0) 07/23/18 21:37 Anion Gap 12.1 (7.0-16.0) 07/23/18 21:37 BUN 15 mg/dL (7-25) 07/23/18 21:37 Creatinine 0.8 mg/dL (0.7-1.3) 07/23/18 21:37 Est GFR ( Amer) TNP 07/23/18 21:37 Est GFR (Non-Af Amer) TNP 07/23/18 21:37 BUN/Creatinine Ratio 18.8 07/23/18 21:37 Glucose 93 mg/dL (70-105) 07/23/18 21:37 Calcium 9.6 mg/dL (8.6-10.3) 07/23/18 21:37 Total Bilirubin 0.4 mg/dL (0.3-1.0) 07/23/18 21:37 AST 19 U/L (13-39) 07/23/18 21:37 ALT 16 U/L (7-52) 07/23/18 21:37 Alkaline Phosphatase 66 U/L (34-104) 07/23/18 21:37 Total Protein 6.6 gm/dL (6.0-8.3) 07/23/18 21:37 Albumin 4.0 gm/dL (4.2-5.5) L 07/23/18 21:37 Globulin 2.6 gm/dL 07/23/18 21:37 Albumin/Globulin Ratio 1.5 (1.0-1.8) 07/23/18 21:37 Triglycerides 71 mg/dL (<150) 07/23/18 21:37 Cholesterol 171 mg/dL (<200) 07/23/18 21:37 LDL Cholesterol Direct 122 mg/dL (75-193) 07/23/18 21:37 HDL Cholesterol 48 mg/dL (23-92) 07/23/18 21:37 TSH 3.46 uIU/ml (0.34-5.60) 07/23/18 21:37 Urine Source CLEAN C 07/23/18 21:50 Urine Color OTHER 07/23/18 21:50 Urine Clarity CLEAR (CLEAR) 07/23/18 21:50 Urine pH 6.5 (4.6 - 8.0) 07/23/18 21:50 Ur Specific [place] <= 1.005 (1.005-1.030) 07/23/18 21:50 Urine Protein NEGATIVE mg/dL (NEGATIVE) 07/23/18 21:50 Urine Glucose (UA) NEGATIVE mg/dL (NEGATIVE) 07/23/18 21:50 Urine Ketones NEGATIVE mg/dL (NEGATIVE) 07/23/18 21:50 Urine Blood NEGATIVE (NEGATIVE) 07/23/18 21:50 Urine Nitrate NEGATIVE (NEGATIVE) 07/23/18 21:50 Urine Bilirubin NEGATIVE (NEGATIVE) 07/23/18 21:50 Urine Urobilinogen 0.2 E.U./dL (0.2 - 1.0) 07/23/18 21:50 Ur Leukocyte Esterase NEGATIVE (NEGATIVE) 07/23/18 21:50 RPR NONREACTIVE (NONREACTIVE) 07/23/18 21:37 - Physical Exam Vitals and I&O: Vital Signs Temp 98.3 F 07/29/18 15:41 Pulse 80 07/29/18 15:41 Resp 20 07/29/18 15:41 BP 108/65 07/29/18 15:41 Pulse Ox 95 07/29/18 15:41 Intake & Output 07/29/18 07/29/18 07/30/18 06:59 18:59 06:59 Intake Total 480 Balance 480 Intake: Oral 480 Other: # Voids 2 Active Medications: Current Medications Al Hydrox/Mg Hydrox/Simethicone (Maalox) 30 ml PO Q6HR PRN PRN Reason: gi distress Stop: 09/22/18 00:24 Aspirin (Ecotrin) 81 mg PO DAILY [facility] Stop: 09/22/18 08:59 Last Admin: 07/29/18 09:23 Dose: 81 mg Docusate Sodium (Colace) 250 mg PO DAILY [facility] Stop: 09/22/18 08:59 Last Admin: 07/29/18 09:23 Dose: 250 mg Donepezil HCl (Aricept) 10 mg PO HS [facility] Stop: 09/22/18 20:59 Last Admin: 07/28/18 20:40 Dose: 10 mg Gabapentin (Neurontin) 600 mg PO TID [facility] Stop: 09/22/18 08:59 Last Admin: 07/29/18 14:56 Dose: 600 mg Lamotrigine (Lamictal) 100 mg PO BID [facility]; Protocol Stop: 09/22/18 08:59 Last Admin: 07/29/18 17:38 Dose: 100 mg Lorazepam (Ativan) 0.5 mg PO Q4HR PRN; Protocol PRN Reason: Anxiety Stop: 08/23/18 00:18 Last Admin: 07/28/18 23:51 Dose: 0.5 mg Mirtazapine (Remeron) 15 mg PO HS [facility]; Protocol Stop: 09/27/18 20:59 Multivitamins/Vitamin C (Theragran) 1 tab PO DAILY [facility] Stop: 09/22/18 08:59 Last Admin: 07/29/18 09:23 Dose: 1 tab Pantoprazole Sodium (Protonix) 40 mg PO QDAC [facility] Stop: 09/22/18 07:29 Last Admin: 07/29/18 06:56 Dose: 40 mg Zolpidem Tartrate (Ambien) 5 mg PO HS PRN PRN Reason: Insomnia Stop: 09/22/18 00:18 Last Admin: 07/28/18 20:41 Dose: 5 mg General: No acute distress HEENT: Atraumatic Neck: Supple, JVD Cardiovascular: Regular rate, Normal S1, Normal S2 Lungs: Clear to auscultation Abdomen: Bowel sounds, Soft Assessment/Plan - Assessment Assessment: 1.PERIPHERAL NEUROPATHY. 2.DJD. 3.DEMENTIA. 4.PSYCHOSIS. - Plan Plan: CONTINUE CURRENT TREATMENT Nutritional Asmnt/Malnutr-PDOC - Dietary Evaluation Malnutrition Findings (Please click <Entered> for more info): Nutritional Asmnt/Malnutrition Start: 07/25/18 14: 51 Text: Status: Complete Freq: Protocol: Document 07/25/18 14:52 LCHENG (Rec: 07/25/18 14:57 LCHENG [email or web address]) Nutritional Asmnt/Malnutrition Patient General Information Nutritional Screening Moderate Risk Diagnosis psychosis Pertinent Medical Hx/Surgical Hx DJD, dementia, peripheral neuropathy Subjective Information Pt seen eating in dining room, alert. Food preference provided to RD. Per EMR, PO intake 50-75% Current Diet Order/ Nutrition Support MARIA ISABEL Pertinent Medications colace, remeron, theragran, protonix Pertinent Labs 07/23 Alb 4.0 Nutritional Hx/Data Height 1.78 m Height (Calculated Centimeters) 177.8 Current Weight (lbs) 77.111 kg Weight (Calculated Kilograms) 77.1 Weight (Calculated Grams) 91975.7 [place] Body Weight 166 Body Mass Index (BMI) 24.3 Weight Status Approriate GI Symptoms GI Symptoms None Last BM 07/25 Difficult in: None Skin Integrity/Comment: intact Current %PO Fair (50-74%) Estimated Nutritional Goals BEE in Kcals: Using Current wt Calories/Kcals/Kg 25-30 Kcals Calculated 1164-6792 Protein: Using Current wt Protein g/k Protein Calculated 77 Fluid: ml 1925-2310ml (1ml/kcal) Nutritional Problem No current Nutrition Prob Problem N/A Malnutrition Alert Is there a minimum of two criteria No selected? Query Text:Check all the applicable criteria. A minimum of two criteria are recommended for diagnosis of either severe or non-severe malnutrition. Malnutrition Related to Morbid Obesity Malnutrition related to morbid obesity No Intervention/Recommendation Comments 1. Continue with MARIA ISABEL diet as ordered. Food preference updated. 2. Monitor PO intake, wt, labs and skin integrity 3. F/U as low risk in 7 days Expected Outcomes/Goals Expected Outcomes/Goals 1. PO intake to meet at least 75% of nutritional needs. 2. Wt stability, skin to remain intact, labs to approach WNL.
--- NOTE | 2018-07-29 20:08 | Progress Notes ---
DATE: 07/29/2018 SUBJECTIVE: The patient was seen and evaluated. The patient's chart reviewed. Covering for Dr. Khan. Nursing staff reported the patient continues to present very irritable. Today on [id number] evaluation, continues to present very overly anxious and worried and depressed. MENTAL STATUS EXAMINATION: Anxious, irritable, overly preoccupied and ruminating. ASSESSMENT AND PLAN: History of dementia with behavior disturbance with poor sleep. We will continue increasing Remeron to his medication regimen from 7.5 to 15 to target the patient's ruminating and insomnia symptoms. [facility]# [id number]
[2018-07-30] MEDS: Pantoprazole 40 mg EC Tab PO SCH (06:39)
[2018-07-30] MEDS: Multivitamin Tab PO SCH (08:30)
--- NOTE | 2018-07-30 19:54 | Internal Medicine Prog Note ---
Internal Medicine Subjective - Subjective Service Date: 07/30/18 Patient seen and examined:: with staff Patient is:: awake, verbal, in wheelchair, confused Per staff patient has:: no adverse event Internal Medicine Objective - Results Result Diagrams: 07/23/18 21:37 07/23/18 21:37 Recent Labs: Laboratory Last Values WBC 7.0 Th/cmm (4.8-10.8) 07/23/18 21:37 RBC 4.85 Mil/cmm (3.80-5.80) 07/23/18 21:37 Hgb 13.4 gm/dL (12-16) 07/23/18 21:37 Hct 41.4 % (41.0-60) 07/23/18 21:37 MCV 85.3 fl (80-99) 07/23/18 21:37 MCH 27.6 pg (27.0-31.0) 07/23/18 21:37 MCHC Differential 32.4 pg (28.0-36.0) 07/23/18 21:37 RDW 12.4 % (11.5-20.0) 07/23/18 21:37 Plt Count 271 Th/cmm (150-400) 07/23/18 21:37 MPV 8.3 fl 07/23/18 21:37 Neutrophils % 49.9 % (40.0-80.0) 07/23/18 21:37 Lymphocytes % 42.1 % (20.0-50.0) 07/23/18 21:37 Monocytes % 5.1 % (2.0-10.0) 07/23/18 21:37 Eosinophils % 2.0 % (0.0-5.0) 07/23/18 21:37 Basophils % 0.9 % (0.0-2.0) 07/23/18 21:37 Sodium 137 mEq/L (136-145) 07/23/18 21:37 Potassium 3.7 mEq/L (3.5-5.1) 07/23/18 21:37 Chloride 101 mEq/L (98-107) 07/23/18 21:37 Carbon Dioxide 27.6 mEq/L (21.0-31.0) 07/23/18 21:37 Anion Gap 12.1 (7.0-16.0) 07/23/18 21:37 BUN 15 mg/dL (7-25) 07/23/18 21:37 Creatinine 0.8 mg/dL (0.7-1.3) 07/23/18 21:37 Est GFR ( Amer) TNP 07/23/18 21:37 Est GFR (Non-Af Amer) TNP 07/23/18 21:37 BUN/Creatinine Ratio 18.8 07/23/18 21:37 Glucose 93 mg/dL (70-105) 07/23/18 21:37 Calcium 9.6 mg/dL (8.6-10.3) 07/23/18 21:37 Total Bilirubin 0.4 mg/dL (0.3-1.0) 07/23/18 21:37 AST 19 U/L (13-39) 07/23/18 21:37 ALT 16 U/L (7-52) 07/23/18 21:37 Alkaline Phosphatase 66 U/L (34-104) 07/23/18 21:37 Total Protein 6.6 gm/dL (6.0-8.3) 07/23/18 21:37 Albumin 4.0 gm/dL (4.2-5.5) L 07/23/18 21:37 Globulin 2.6 gm/dL 07/23/18 21:37 Albumin/Globulin Ratio 1.5 (1.0-1.8) 07/23/18 21:37 Triglycerides 71 mg/dL (<150) 07/23/18 21:37 Cholesterol 171 mg/dL (<200) 07/23/18 21:37 LDL Cholesterol Direct 122 mg/dL (75-193) 07/23/18 21:37 HDL Cholesterol 48 mg/dL (23-92) 07/23/18 21:37 TSH 3.46 uIU/ml (0.34-5.60) 07/23/18 21:37 Urine Source CLEAN C 07/23/18 21:50 Urine Color OTHER 07/23/18 21:50 Urine Clarity CLEAR (CLEAR) 07/23/18 21:50 Urine pH 6.5 (4.6 - 8.0) 07/23/18 21:50 Ur Specific [place] <= 1.005 (1.005-1.030) 07/23/18 21:50 Urine Protein NEGATIVE mg/dL (NEGATIVE) 07/23/18 21:50 Urine Glucose (UA) NEGATIVE mg/dL (NEGATIVE) 07/23/18 21:50 Urine Ketones NEGATIVE mg/dL (NEGATIVE) 07/23/18 21:50 Urine Blood NEGATIVE (NEGATIVE) 07/23/18 21:50 Urine Nitrate NEGATIVE (NEGATIVE) 07/23/18 21:50 Urine Bilirubin NEGATIVE (NEGATIVE) 07/23/18 21:50 Urine Urobilinogen 0.2 E.U./dL (0.2 - 1.0) 07/23/18 21:50 Ur Leukocyte Esterase NEGATIVE (NEGATIVE) 07/23/18 21:50 RPR NONREACTIVE (NONREACTIVE) 07/23/18 21:37 - Physical Exam Vitals and I&O: Vital Signs Temp 97.7 F 07/30/18 15:04 Pulse 62 07/30/18 15:04 Resp 18 07/30/18 15:04 BP 93/51 07/30/18 15:04 Pulse Ox 97 07/30/18 15:04 Intake & Output 07/30/18 07/30/18 07/31/18 06:59 18:59 06:59 Intake Total 240 Balance 240 Weight (lbs) 77.111 kg Intake: Oral 240 Other: # Voids 3 2 # Bowel Movements 0 1 Weight Source Bedscale Active Medications: Current Medications Al Hydrox/Mg Hydrox/Simethicone (Maalox) 30 ml PO Q6HR PRN PRN Reason: gi distress Stop: 09/22/18 00:24 Aspirin (Ecotrin) 81 mg PO DAILY [facility] Stop: 09/22/18 08:59 Last Admin: 07/30/18 08:30 Dose: 81 mg Docusate Sodium (Colace) 250 mg PO DAILY [facility] Stop: 09/22/18 08:59 Last Admin: 07/30/18 08:30 Dose: 250 mg Donepezil HCl (Aricept) 10 mg PO HS [facility] Stop: 09/22/18 20:59 Last Admin: 07/29/18 21:15 Dose: 10 mg Gabapentin (Neurontin) 600 mg PO TID [facility] Stop: 09/22/18 08:59 Last Admin: 07/30/18 13:41 Dose: 600 mg Lamotrigine (Lamictal) 100 mg PO BID [facility]; Protocol Stop: 09/22/18 08:59 Last Admin: 07/30/18 17:10 Dose: 100 mg Lorazepam (Ativan) 0.5 mg PO Q4HR PRN; Protocol PRN Reason: Anxiety Stop: 08/23/18 00:18 Last Admin: 07/28/18 23:51 Dose: 0.5 mg Mirtazapine (Remeron) 15 mg PO HS [facility]; Protocol Stop: 09/27/18 20:59 Last Admin: 07/29/18 21:15 Dose: 15 mg Multivitamins/Vitamin C (Theragran) 1 tab PO DAILY [facility] Stop: 09/22/18 08:59 Last Admin: 07/30/18 08:30 Dose: 1 tab Pantoprazole Sodium (Protonix) 40 mg PO QDAC [facility] Stop: 09/22/18 07:29 Last Admin: 07/30/18 06:39 Dose: 40 mg Zolpidem Tartrate (Ambien) 5 mg PO HS PRN PRN Reason: Insomnia Stop: 09/22/18 00:18 Last Admin: 07/29/18 21:15 Dose: 5 mg General: alert, demented HEENT: PERRLA, EOMI, anicteric sclerae, throat clear Neck: Supple, No JVD, No thyromegaly, +2 carotid pulse wo bruit, No LAD Lungs: CTAB Cardiovascular: RRR, Normal S1, Normal S2, without murmur Abdomen: soft, non-tender, non-distended Extremities: clear Neurological: no change Internal Medicine Assmt/Plan - Assessment Assessment: 1.DJD. 2.PERIPHERAL NEUROPATHY. 3.DEMENTIA. 4.PSYCHOSIS. - Plan Plan: CONTINUE ON CURRENT MEDICATION AND DIET. Nutritional Asmnt/Malnutr-PDOC - Dietary Evaluation Malnutrition Findings (Please click <Entered> for more info): Nutritional Asmnt/Malnutrition Start: 07/25/18 14: 51 Text: Status: Complete Freq: Protocol: Document 07/25/18 14:52 [email or web address] (Rec: 07/25/18 14:57 [email or web address]) Nutritional Asmnt/Malnutrition Patient General Information Nutritional Screening Moderate Risk Diagnosis psychosis Pertinent Medical Hx/Surgical Hx DJD, dementia, peripheral neuropathy Subjective Information Pt seen eating in dining room, alert. Food preference provided to RD. Per EMR, PO intake 50-75% Current Diet Order/ Nutrition Support MARIA ISABEL Pertinent Medications colace, remeron, theragran, protonix Pertinent Labs 07/23 Alb 4.0 Nutritional Hx/Data Height 1.78 m Height (Calculated Centimeters) 177.8 Current Weight (lbs) 77.111 kg Weight (Calculated Kilograms) 77.1 Weight (Calculated Grams) 85185.7 [place] Body Weight 166 Body Mass Index (BMI) 24.3 Weight Status Approriate GI Symptoms GI Symptoms None Last BM 07/25 Difficult in: None Skin Integrity/Comment: intact Current %PO Fair (50-74%) Estimated Nutritional Goals BEE in Kcals: Using Current wt Calories/Kcals/Kg 25-30 Kcals Calculated 5707-5050 Protein: Using Current wt Protein g/k Protein Calculated 77 Fluid: ml 1925-2310ml (1ml/kcal) Nutritional Problem No current Nutrition Prob Problem N/A Malnutrition Alert Is there a minimum of two criteria No selected? Query Text:Check all the applicable criteria. A minimum of two criteria are recommended for diagnosis of either severe or non-severe malnutrition. Malnutrition Related to Morbid Obesity Malnutrition related to morbid obesity No Intervention/Recommendation Comments 1. Continue with MARIA ISABEL diet as ordered. Food preference updated. 2. Monitor PO intake, wt, labs and skin integrity 3. F/U as low risk in 7 days Expected Outcomes/Goals Expected Outcomes/Goals 1. PO intake to meet at least 75% of nutritional needs. 2. Wt stability, skin to remain intact, labs to approach WNL.
--- NOTE | 2018-07-31 04:13 | Progress Notes ---
DATE: 07/30/2018 SUBJECTIVE: Chart reviewed and the patient interviewed. Also discussed the patient's condition with the staff and reviewed records and labs. The patient is still responding to internal stimuli. The patient also is still argumentative and is still easily agitated and have disorganized thoughts. The patient also is hyperverbal and still needs lots of redirections. The patient also is questionable that seeking his medications. ASSESSMENT: The patient is still confused and psychotic. TREATMENT PLAN: We will increase Zyprexa to 15 mg at bedtime. Also, we will give Depakote or Depakene form for better compliance in a dose of 500 mg twice a day and we will continue to follow up. JOB# [id number]
[2018-07-31] MEDS: Pantoprazole 40 mg EC Tab PO SCH (06:45)
[2018-07-31] MEDS: Multivitamin Tab PO SCH (08:23)
--- NOTE | 2018-07-31 21:28 | Internal Medicine Prog Note ---
Internal Medicine Subjective - Subjective Service Date: 07/31/18 Patient seen and examined:: with staff Patient is:: awake, verbal, in wheelchair, confused Per staff patient has:: no adverse event Internal Medicine Objective - Results Result Diagrams: 07/23/18 21:37 07/23/18 21:37 Recent Labs: Laboratory Last Values WBC 7.0 Th/cmm (4.8-10.8) 07/23/18 21:37 RBC 4.85 Mil/cmm (3.80-5.80) 07/23/18 21:37 Hgb 13.4 gm/dL (12-16) 07/23/18 21:37 Hct 41.4 % (41.0-60) 07/23/18 21:37 MCV 85.3 fl (80-99) 07/23/18 21:37 MCH 27.6 pg (27.0-31.0) 07/23/18 21:37 MCHC Differential 32.4 pg (28.0-36.0) 07/23/18 21:37 RDW 12.4 % (11.5-20.0) 07/23/18 21:37 Plt Count 271 Th/cmm (150-400) 07/23/18 21:37 MPV 8.3 fl 07/23/18 21:37 Neutrophils % 49.9 % (40.0-80.0) 07/23/18 21:37 Lymphocytes % 42.1 % (20.0-50.0) 07/23/18 21:37 Monocytes % 5.1 % (2.0-10.0) 07/23/18 21:37 Eosinophils % 2.0 % (0.0-5.0) 07/23/18 21:37 Basophils % 0.9 % (0.0-2.0) 07/23/18 21:37 Sodium 137 mEq/L (136-145) 07/23/18 21:37 Potassium 3.7 mEq/L (3.5-5.1) 07/23/18 21:37 Chloride 101 mEq/L (98-107) 07/23/18 21:37 Carbon Dioxide 27.6 mEq/L (21.0-31.0) 07/23/18 21:37 Anion Gap 12.1 (7.0-16.0) 07/23/18 21:37 BUN 15 mg/dL (7-25) 07/23/18 21:37 Creatinine 0.8 mg/dL (0.7-1.3) 07/23/18 21:37 Est GFR ( Amer) TNP 07/23/18 21:37 Est GFR (Non-Af Amer) TNP 07/23/18 21:37 BUN/Creatinine Ratio 18.8 07/23/18 21:37 Glucose 93 mg/dL (70-105) 07/23/18 21:37 Calcium 9.6 mg/dL (8.6-10.3) 07/23/18 21:37 Total Bilirubin 0.4 mg/dL (0.3-1.0) 07/23/18 21:37 AST 19 U/L (13-39) 07/23/18 21:37 ALT 16 U/L (7-52) 07/23/18 21:37 Alkaline Phosphatase 66 U/L (34-104) 07/23/18 21:37 Total Protein 6.6 gm/dL (6.0-8.3) 07/23/18 21:37 Albumin 4.0 gm/dL (4.2-5.5) L 07/23/18 21:37 Globulin 2.6 gm/dL 07/23/18 21:37 Albumin/Globulin Ratio 1.5 (1.0-1.8) 07/23/18 21:37 Triglycerides 71 mg/dL (<150) 07/23/18 21:37 Cholesterol 171 mg/dL (<200) 07/23/18 21:37 LDL Cholesterol Direct 122 mg/dL (75-193) 07/23/18 21:37 HDL Cholesterol 48 mg/dL (23-92) 07/23/18 21:37 TSH 3.46 uIU/ml (0.34-5.60) 07/23/18 21:37 Urine Source CLEAN C 07/23/18 21:50 Urine Color OTHER 07/23/18 21:50 Urine Clarity CLEAR (CLEAR) 07/23/18 21:50 Urine pH 6.5 (4.6 - 8.0) 07/23/18 21:50 Ur Specific [place] <= 1.005 (1.005-1.030) 07/23/18 21:50 Urine Protein NEGATIVE mg/dL (NEGATIVE) 07/23/18 21:50 Urine Glucose (UA) NEGATIVE mg/dL (NEGATIVE) 07/23/18 21:50 Urine Ketones NEGATIVE mg/dL (NEGATIVE) 07/23/18 21:50 Urine Blood NEGATIVE (NEGATIVE) 07/23/18 21:50 Urine Nitrate NEGATIVE (NEGATIVE) 07/23/18 21:50 Urine Bilirubin NEGATIVE (NEGATIVE) 07/23/18 21:50 Urine Urobilinogen 0.2 E.U./dL (0.2 - 1.0) 07/23/18 21:50 Ur Leukocyte Esterase NEGATIVE (NEGATIVE) 07/23/18 21:50 RPR NONREACTIVE (NONREACTIVE) 07/23/18 21:37 - Physical Exam Vitals and I&O: Vital Signs Temp 98.8 F 07/31/18 20:01 Pulse 63 07/31/18 20:01 Resp 20 07/31/18 20:01 BP 100/55 07/31/18 20:01 Pulse Ox 96 07/31/18 20:01 Intake & Output 07/31/18 07/31/18 08/01/18 06:59 18:59 06:59 Intake Total 360 240 Balance 360 240 Weight (lbs) 77.111 kg 77.111 kg Intake: Oral 360 240 Other: # Voids 2 3 # Bowel Movements 0 0 Weight Source Bedscale Bedscale Active Medications: Current Medications Al Hydrox/Mg Hydrox/Simethicone (Maalox) 30 ml PO Q6HR PRN PRN Reason: gi distress Stop: 09/22/18 00:24 Aspirin (Ecotrin) 81 mg PO DAILY [facility] Stop: 09/22/18 08:59 Last Admin: 07/31/18 08:23 Dose: 81 mg Docusate Sodium (Colace) 250 mg PO DAILY [facility] Stop: 09/22/18 08:59 Last Admin: 07/31/18 08:23 Dose: 250 mg Donepezil HCl (Aricept) 10 mg PO HS [facility] Stop: 09/22/18 20:59 Last Admin: 07/31/18 20:44 Dose: 10 mg Gabapentin (Neurontin) 600 mg PO TID [facility] Stop: 09/22/18 08:59 Last Admin: 07/31/18 20:45 Dose: 600 mg Lamotrigine (Lamictal) 100 mg PO BID [facility]; Protocol Stop: 09/22/18 08:59 Last Admin: 07/31/18 16:58 Dose: 100 mg Lorazepam (Ativan) 0.5 mg PO Q4HR PRN; Protocol PRN Reason: Anxiety Stop: 08/23/18 00:18 Last Admin: 07/28/18 23:51 Dose: 0.5 mg Mirtazapine (Remeron) 15 mg PO HS [facility]; Protocol Stop: 09/27/18 20:59 Last Admin: 07/31/18 20:45 Dose: 15 mg Multivitamins/Vitamin C (Theragran) 1 tab PO DAILY [facility] Stop: 09/22/18 08:59 Last Admin: 07/31/18 08:23 Dose: 1 tab Pantoprazole Sodium (Protonix) 40 mg PO QDAC [facility] Stop: 09/22/18 07:29 Last Admin: 07/31/18 06:45 Dose: 40 mg Zolpidem Tartrate (Ambien) 5 mg PO HS PRN PRN Reason: Insomnia Stop: 09/22/18 00:18 Last Admin: 07/29/18 21:15 Dose: 5 mg General: alert, demented HEENT: PERRLA, EOMI, anicteric sclerae, throat clear Neck: Supple, No JVD, No thyromegaly, +2 carotid pulse wo bruit, No LAD Lungs: CTAB Cardiovascular: RRR, Normal S1, Normal S2, without murmur Abdomen: soft, non-tender, non-distended Extremities: clear Neurological: no change Internal Medicine Assmt/Plan - Assessment Assessment: 1.DJD. 2.PERIPHERAL NEUROPATHY. 3.DEMENTIA. 4.PSYCHOSIS. - Plan Plan: CONTINUE ON CURRENT MEDICATION AND DIET. Nutritional Asmnt/Malnutr-PDOC - Dietary Evaluation Malnutrition Findings (Please click <Entered> for more info): Nutritional Asmnt/Malnutrition Start: 07/25/18 14: 51 Text: Status: Complete Freq: Protocol: Document 07/25/18 14:52 LCALBERTOG (Rec: 07/25/18 14:57 [email or web address]) Nutritional Asmnt/Malnutrition Patient General Information Nutritional Screening Moderate Risk Diagnosis psychosis Pertinent Medical Hx/Surgical Hx DJD, dementia, peripheral neuropathy Subjective Information Pt seen eating in dining room, alert. Food preference provided to RD. Per EMR, PO intake 50-75% Current Diet Order/ Nutrition Support MARIA ISABEL Pertinent Medications colace, remeron, theragran, protonix Pertinent Labs 07/23 Alb 4.0 Nutritional Hx/Data Height 1.78 m Height (Calculated Centimeters) 177.8 Current Weight (lbs) 77.111 kg Weight (Calculated Kilograms) 77.1 Weight (Calculated Grams) 22886.7 [place] Body Weight 166 Body Mass Index (BMI) 24.3 Weight Status Approriate GI Symptoms GI Symptoms None Last BM 07/25 Difficult in: None Skin Integrity/Comment: intact Current %PO Fair (50-74%) Estimated Nutritional Goals BEE in Kcals: Using Current wt Calories/Kcals/Kg 25-30 Kcals Calculated 1785-6195 Protein: Using Current wt Protein g/k Protein Calculated 77 Fluid: ml 1925-2310ml (1ml/kcal) Nutritional Problem No current Nutrition Prob Problem N/A Malnutrition Alert Is there a minimum of two criteria No selected? Query Text:Check all the applicable criteria. A minimum of two criteria are recommended for diagnosis of either severe or non-severe malnutrition. Malnutrition Related to Morbid Obesity Malnutrition related to morbid obesity No Intervention/Recommendation Comments 1. Continue with MARIA ISABEL diet as ordered. Food preference updated. 2. Monitor PO intake, wt, labs and skin integrity 3. F/U as low risk in 7 days Expected Outcomes/Goals Expected Outcomes/Goals 1. PO intake to meet at least 75% of nutritional needs. 2. Wt stability, skin to remain intact, labs to approach WNL.
--- NOTE | 2018-08-01 00:04 | Discharge Summary ---
DATE OF DISCHARGE: 07/31/2018 DATE OF DISCHARGE: 07/31. PATIENT'S AGE: 77. SEX: Male. PHYSICIAN: Dr. Khan. FINAL DIAGNOSIS/PRIMARY DIAGNOSIS: Bipolar disorder, mixed type, severe, with psychotic features. SECONDARY DIAGNOSIS: Dementia, moderate to severe, with psychotic features. REASON FOR HOSPITALIZATION: The patient was admitted to the hospital because of confusion and forgetfulness. The patient was unable to provide any safe plan for self-care and was a poor historian. HOSPITAL COURSE: The patient continued to be in irritable mood and confused. The patient also needed lots of redirection. He was given Remeron in a dose of 50 mg at bedtime and also he was given Lamictal 100 mg twice a day, gabapentin 600 mg 3 times a day, and Aricept 10 mg at bedtime. Gradually, the patient's affect was brighter. The patient was less agitated and less irritable and the patient was discharged from the hospital. Physical exam of the patient was basically within normal and the patient had no major medical problems while in the hospital. AFTER DISCHARGE PLANS: The patient was discharged from the hospital and went to [facility] with plans to continue his treatment there. EXPECTED OUTCOME AFTER DISCHARGE: Fair if the patient continues with his treatment and follow up with discharge plans. [facility]# [id number]
[2018-08-01] MEDS: Pantoprazole 40 mg EC Tab PO SCH (06:29)
--- NOTE | 2018-08-01 08:05 | Progress Notes ---
DATE: 08/01/2018 PSYCHIATRIC PROGRESS NOTE SUBJECTIVE: Chart reviewed and the patient interviewed. Also discussed the patient's condition with the staff and reviewed records and labs. The patient was supposed to be discharged yesterday, but for some reason discharge was postponed. Staff referred Dr. Krishnamurthy wanted to keep the patient for some physical reasons in the hospital. The patient currently is calm and cooperative and he is compliant with taking his medications with no side effects of medications. ASSESSMENT: The patient is cooperative and calm. TREATMENT PLAN: Planning to discharge the patient today. Outpatient treatment and followup to continue as an outpatient in [facility]. JOB# [id number]
[2018-08-01] MEDS: Multivitamin Tab PO SCH (09:10)
== END 2018-08-01 17:15 | DRG 885 ==
LOC: ER 21:12 → GERO 23:20
PROVIDERS: ADMIT Psychiatry & Neurology Psychiatry; ATTEND Psychiatry & Neurology Psychiatry
DX: F31.64 Bipolar disorder, current episode mixed, severe, with psychotic features (principal); F03.91 Unspecified dementia, unspecified severity, with behavioral disturbance; M19.90 Unspecified osteoarthritis, unspecified site; G62.9 Polyneuropathy, unspecified; F29 Unspecified psychosis not due to a substance or known physiological condition; I10 Essential (primary) hypertension; I25.10 Atherosclerotic heart disease of native coronary artery without angina pectoris; R56.9 Unspecified convulsions
CPT/HCPCS: 36415-UA; 80053-TC; 80061-TC; 81003-TC; 83036-90; 84443-TC; 85025-TC; 86592-TC; 93005; G0410; Z7610